=== PATIENT | female | born 1975 | race Caucasian/White ===

== ENCOUNTER 2020-12-27 08:35 | Emergency (ER) | payer MEDICARE, MEDICAID, SELFPAY ==
--- NOTE | ~2020-12-27 | XR_ITS ---
EXAMINATION: XR LUMBOSACRAL SPINE CLINICAL INFORMATION: Fall, pain COMPARISON: None TECHNIQUE: Three views of the lumbosacral spine. FINDINGS: Right upper quadrant cholecystectomy clips. 5 nonrib-bearing lumbar type vertebral bodies. Vertebral body heights are maintained. No compression fracture. Lower lumbar facet arthropathy particularly at L4-5 and L5-S1. There is degenerative disc disease with loss of disc height, endplate sclerosis and anterior as well as posterior osteophytosis at L5-S1. XR/XR lumbar spine 2-3V IMPRESSION: Lower lumbar degenerative changes. No acute osseous abnormality.
[2020-12-27 08:40] VITALS: BP 121/67; PULSE 78; RESP 16; TEMP 36.1; O2SAT 96; BMI 29.8
--- NOTE | 2020-12-27 09:10 | ED.FALL ---
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 No head injury or LOC. Not on anticoagulation. C/o low back pain. No neck pain, chest pain or abdominal pain. No headache. MD complaint: fall Related Data Previous Rx's Medication Instructions Recorded lidocaine [Lidoderm] 1 patch TOPICAL DAILY #15 ea 12/27/20 Allergies Allergy/AdvReac Type Severity Reaction Status Date / Time Iodinated Contrast Media Allergy Hypertensio Verified 12/27/20 08:45 [IV Contrast Dye] n seafood Allergy Palpitation Verified 12/27/20 08:45 s Review of Systems Review of Systems: Yes all other systems are reviewed and are negative Constitutional: Constitutional: Reports no additional constitutional complaints, Denies body ache(s), Denies chills, Denies fever(s), Denies headache(s) and Denies weakness Eyes: Eyes: Reports no additional eye complaints and Denies change in vision ENT: Reports system reviewed and no additional complaints, except as documented, Denies dizziness, Denies headache(s), Denies nasal congestion, Denies nasal discharge and Denies neck pain Cardiovascular: Cardiovascular: Reports no additional cardiovascular complaints, Denies chest pain, Denies leg edema and Denies dyspnea Respiratory: Respiratory: Reports no additional respiratory complaints, Denies cough and Denies dyspnea Gastrointestinal: Gastrointestinal: Reports no additional gastrointestinal complaints, Denies abdominal pain, Denies diarrhea, Denies nausea and Denies vomiting Genitourinary: Genitourinary: Reports no additional female genitourinary complaints and Denies urinary incontinence Musculoskeletal: Musculoskeletal: Reports no additional musculoskeletal complaints, Reports back pain, Denies arthralgias, Denies joint swelling, Denies neck pain, Denies numbness and Denies tingling Integumentary/Breasts: Skin/Breast: Reports system reviewed and no additional complaints, except as docu and Denies rash Neurologic: Reports system reviewed and no additional complaints, except as documented, Denies Abnormal speech present, Denies dizziness, Denies headache(s), Denies numbness, Denies tingling and Denies weakness PMFSH Past Medical History Attestation statement: The following information was validated with the patient. Source: old records reviewed and nursing notes reviewed Medical History (Updated 12/27/20 @ 09:55 by Leydi Merino NP) Asthma Herniated disc Hypoglycemia Mitral valve disease Tremor Social History Social History Advance Directives: No Advance Directives Information Provided: No Physical Exam Vital Signs: Vital Signs: Last Vital Signs Temp 97.0 F 12/27/20 08:40 Pulse 78 12/27/20 08:40 Resp 16 12/27/20 08:40 BP 121/67 12/27/20 08:40 Pulse Ox 96 12/27/20 08:40 Body Mass Index 29.8 Const: General: cooperative, healthy appearing, comfortable and no acute distress Orientation/consciousness: patient oriented x3 Limitations: no limitations HENMT: Head: Yes normal to inspection Ears: hearing grossly normal bilaterally General nose exam: Normal external nose present Face and sinus: Yes normal facial exam Mouth: Normal oral and palatal mucosa present Throat: Yes posterior oropharynx normal Eyes: General: appearance normal, both eyes and all related structures Pupils: Equal, round and reactive pupils present Neck: Neck: Yes normal visual inspection Chest: Chest palpation & inspection: normal inspection of the chest Resp: Effort & Inspection: normal respiratory effort Auscultation: clear to auscultation bilaterally Cardio: Rate: regular rate Rhythm: regular rhythm Peripheral pulses: Peripheral pulses 2+ throughout GI: Inspection: Yes normal to inspection Palpation (GI): Soft to palpation and nontender Auscultation: normal bowel sounds Back/Spine/Pelvis: Other: Ecchymosis over lumbar spine. No step-offs or deformities. There is midline tenderness Thoracic/Lumbar Spine: thoracic and lumbar spine normal to inspection Skin: General skin exam: no rashes or lesions noted Neuro: General: patient oriented x3, no focal motor deficits and normal sensation to monofilament Cranial nerves: Yes Equal, round and reactive pupils present Cognition (Neuro): normal cognition Speech: No Abnormal speech present Gait exam (Neuro): Normal gait present Motor exam (neuro): 5/5 motor strength present throughout Extrem: General: Yes normal to inspection Course Course Course Narrative: Low back pain status post slip and fall yesterday. On exam has some ecchymosis over the low spine tenderness. No step-offs or deformities. Will check imaging 0950-X-rays negative. Likely contusion. No neurological deficits or red flag symptoms. Reviewed worrisome signs and symptoms of when to return to the emergency department. Comfortable discharge home. MDM - Fall Medical Records Attestation: I reviewed the patient's medical records. Lab Data Attestation: I reviewed the patient's lab results. Imaging Data lumbar xra-y: Attestation: I personally reviewed and interpreted this imaging study as follows: Radiologist's impression: EXAMINATION: XR LUMBOSACRAL SPINE CLINICAL INFORMATION: Fall, pain COMPARISON: None TECHNIQUE: Three views of the lumbosacral spine. FINDINGS: Right upper quadrant cholecystectomy clips. 5 nonrib-bearing lumbar type vertebral bodies. Vertebral body heights are maintained. No compression fracture. Lower lumbar facet arthropathy particularly at L4-5 and L5-S1. There is degenerative disc disease with loss of disc height, endplate sclerosis and anterior as well as posterior osteophytosis at L5-S1. XR/XR lumbar spine 2-3V IMPRESSION: Lower lumbar degenerative changes. No acute osseous abnormality. Discharge Plan Discharge Clinical Impression: Contusion Patient Disposition: Home, Self-Care Instructions: Contusion in Adults (ED) Additional Instructions: Ice to the area Gentle stretching No heavy lifting or bending Continue the naproxen twice daily Follow-up with primary care doctor in 5-7 days Prescriptions: New lidocaine [Lidoderm] 5 % adhesive patch,medicated 1 patch topical DAILY Qty: 15 RF: 0 Referrals: Name,MD Mu [Primary Care Provider] - 2 days Interventions: ED Discharge Assessment Last Done: 12/27/20 10:10 Discharge Date/Time: 12/27/20 10:10 Print Language: Peruvian
== END 2020-12-27 10:10 | disposition home or self-care (01) ==
PROVIDERS: Emergency Provider Emergency Medicine; PCP Internal Medicine Geriatric Medicine
DX: S30.0XXA Contusion of lower back and pelvis, initial encounter (principal); M54.5 Low back pain; W00.0XXA Fall on same level due to ice and snow, initial encounter; Y93.29 Activity, other involving ice and snow; Y92.9 Unspecified place or not applicable; Y99.9 Unspecified external cause status; Z79.899 Other long term (current) drug therapy
CPT/HCPCS: 72100; 99283

== ENCOUNTER 2021-11-02 07:06 | Emergency (ER) | payer MEDICARE, MEDICAID, SELFPAY ==
--- NOTE | ~2021-11-02 | XR_ITS ---
EXAMINATION: XR CHEST CLINICAL INFORMATION: Shortness of breath with cough. Covid positive. COMPARISON: None TECHNIQUE: AP portable view of the chest was obtained. FINDINGS: No significant abnormality is noted involving the heart, lungs, mediastinum, bony thorax or soft tissues. XR/XR chest 1V IMPRESSION: No acute parenchymal disease.
[2021-11-02 07:38] VITALS: BP 112/68; PULSE 90; RESP 18; TEMP 37.1; O2SAT 96
[2021-11-02 08:14] LABS: COVID-19 Test Positive (Negative)
[2021-11-02 08:28] VITALS: BP 99/68; PULSE 74; RESP 16; TEMP 36.9; O2SAT 96; BMI 25.4
--- NOTE | 2021-11-02 08:33 | ED.URI ---
HPI - URI/Sore Throat General Chief Complaint: Upper Respiratory Symptoms Stated Complaint: SOB/Sore throat Time Seen by Provider: 11/02/21 07:12 Source: patient and machinist apprentice Mode of arrival: ambulatory Limitations: language barrier History of Present Illness HPI Narrative: 46-year-old female with a history of asthma here with reports of shortness of breath body aches for 3 days, with cough and wheezing despite using her albuterol inhaler. Patient denies any fevers, chills, abdominal pain, vomiting, diarrhea, chest pain. Patient received Moderna vaccine x2. Related Data Previous Rx's Medication Instructions Recorded lidocaine 5 % topical patch 1 patch TOPICAL DAILY #15 ea 12/27/20 (Lidoderm) benzonatate 200 mg capsule 200 mg PO TID PRN #15 cap 11/02/21 prednisone 20 mg tablet 40 mg PO DAILY #10 tab 11/02/21 Allergies Allergy/AdvReac Type Severity Reaction Status Date / Time Iodinated Contrast Media Allergy Hypertensio Verified 12/27/20 08:45 [IV Contrast Dye] n seafood Allergy Palpitation Verified 12/27/20 08:45 s Review of Systems Review of Systems: Yes all other systems are reviewed and are negative Constitutional: Constitutional: Reports no additional constitutional complaints, Reports body ache(s), Denies chills, Denies fever(s), Denies headache(s) and Denies weakness Eyes: Eyes: Reports no additional eye complaints and Denies change in vision ENT: Reports system reviewed and no additional complaints, except as documented, Denies dizziness, Denies headache(s), Denies nasal congestion, Denies nasal discharge and Denies neck pain Cardiovascular: Cardiovascular: Reports no additional cardiovascular complaints, Denies chest pain, Denies leg edema and Reports dyspnea Respiratory: Respiratory: Reports no additional respiratory complaints, Reports cough, Reports dyspnea and Reports wheezing Gastrointestinal: Gastrointestinal: Reports no additional gastrointestinal complaints, Denies abdominal pain, Denies diarrhea, Denies nausea and Denies vomiting Genitourinary: Genitourinary: Reports no additional female genitourinary complaints and Denies urinary incontinence Musculoskeletal: Musculoskeletal: Reports no additional musculoskeletal complaints, Denies back pain, Denies arthralgias, Denies joint swelling, Denies neck pain, Denies numbness and Denies tingling Integumentary/Breasts: Skin/Breast: Reports system reviewed and no additional complaints, except as docu and Denies rash Neurologic: Reports system reviewed and no additional complaints, except as documented, Denies Abnormal speech present, Denies dizziness, Denies headache(s), Denies numbness, Denies tingling and Denies weakness Allergic/Immunologic: Allergic/Immunologic: Reports wheezing [facility] Past Medical History Attestation statement: The following information was validated with the patient. Source: old records reviewed and nursing notes reviewed Medical History Asthma Herniated disc Hypoglycemia Mitral valve disease Tremor Social History Social History Advance Directives: No Advance Directives Information Provided: Yes Physical Exam Vital Signs: Vital Signs: Last Vital Signs Temp 98.5 F 11/02/21 08:28 Pulse 74 11/02/21 08:28 Resp 16 11/02/21 08:28 BP 99/68 11/02/21 08:28 Pulse Ox 96 11/02/21 08:28 BMI result Body Mass Index 25.4 Const: General: cooperative, healthy appearing, comfortable and no acute distress Orientation/consciousness: patient oriented x3 Limitations: no limitations HENMT: Head: Yes normal to inspection Ears: hearing grossly normal bilaterally and TM's normal bilaterally General nose exam: Normal external nose present Face and sinus: Yes normal facial exam Mouth: Normal oral and palatal mucosa present Throat: Yes posterior oropharynx normal, Yes tonsils normal and Yes uvula midline Eyes: General: appearance normal, both eyes and all related structures Pupils: Equal, round and reactive pupils present Neck: Neck: Yes normal visual inspection, Yes full ROM, Yes no lymphadenopathy and Yes no meningeal signs Chest: Chest palpation & inspection: normal inspection of the chest Resp: Effort & Inspection: normal respiratory effort Auscultation: clear to auscultation bilaterally Cardio: Rate: regular rate Rhythm: regular rhythm Peripheral pulses: Peripheral pulses 2+ throughout GI: Inspection: Yes normal to inspection Palpation (GI): Soft to palpation and nontender Auscultation: normal bowel sounds Back/Spine/Pelvis: Thoracic/Lumbar Spine: thoracic and lumbar spine normal to inspection Skin: General skin exam: no rashes or lesions noted Neuro: General: patient oriented x3, no meningeal signs, no focal motor deficits and normal sensation to monofilament Cranial nerves: Yes Equal, round and reactive pupils present Cognition (Neuro): normal cognition Speech: No Abnormal speech present Gait exam (Neuro): Normal gait present Motor exam (neuro): 5/5 motor strength present throughout Extrem: General: Yes normal to inspection, Yes no pedal edema and Yes no calf tenderness Course Course Course Narrative: 46-year-old female with a history of asthma here with 3 days of cough, wheezing, shortness of breath and body aches. Patient received COVID vaccine x2, she has not received a booster. On arrival the patient appears well. She has mild expiratory wheezing. Vitals are stable. No tachypnea or hypoxia. COVID screen is positive. Will check chest x-ray 914-chest x-ray shows no acute finding. Due to wheezing will prescribe course of prednisone. Patient was given referral sheet for monoclonal antibodies and this was emailed to the [facility]. We discussed this with the machinist apprentice. Reviewed worrisome signs and symptoms and when to return to the emergency department. Comfortable with discharge home. MDM - URI/Sore Throat Medical Records Attestation: I reviewed the patient's medical records. Lab Data Attestation: I reviewed the patient's lab results. Labs: Lab Results 11/02/21 Range/Units 07:53 COVID-19 (BEL) Positive A (Negative) COVID-19 Clin Com See Note Imaging Data Chest x-ray: Attestation: I personally reviewed and interpreted this imaging study as follows: Radiologist's impression: EXAMINATION: XR CHEST CLINICAL INFORMATION: Shortness of breath with cough. Covid positive. COMPARISON: None TECHNIQUE: AP portable view of the chest was obtained. FINDINGS: No significant abnormality is noted involving the heart, lungs, mediastinum, bony thorax or soft tissues. XR/XR chest 1V IMPRESSION: No acute parenchymal disease. ? Discharge Plan Discharge Clinical Impression: COVID-19 Patient Disposition: Home, Self-Care Instructions: COVID-19 (Coronavirus Disease 2019) (ED) Additional Instructions: Quarantine for 10 days from onset of symptoms Increase fluids, rest Alternate Motrin and Tylenol for pain or fever Continue your albuterol Return to the emergency department for worsening shortness of breath or chest pain See referral sheet for monoclonal antibodies Prescriptions: New prednisone 20 mg tablet 40 mg PO DAILY Qty: 10 RF: 0 benzonatate 200 mg capsule 200 mg PO TID PRN (Reason: cough) Qty: 15 RF: 0 No Action lidocaine [Lidoderm] 5 % adhesive patch,medicated 1 patch topical DAILY Qty: 15 RF: 0 Referrals: Sharonda Newton MD [Primary Care Provider] - 2 days Interventions: ED Discharge Assessment Last Done: 11/02/21 09:27 Discharge Date/Time: 11/02/21 09:29 Print Language: Kyrgyz
== END 2021-11-02 09:29 | disposition home or self-care (01) ==
PROVIDERS: Emergency Provider Emergency Medicine; PCP Internal Medicine
DX: U07.1 COVID-19 (principal); R06.02 Shortness of breath
CPT/HCPCS: 36415; 71045; 87635; 99282; 99283

== ENCOUNTER 2022-07-01 13:05 | Outpatient (REF) | payer MEDICARE, MEDICAID, SELFPAY ==
--- NOTE | ~2022-07-01 | MM_ITS ---
EXAMINATION: MM SCREENING DIGITAL BREAST TOMOSYNTHESIS, BILATERAL CLINICAL INFORMATION: Screening. Asymptomatic. The lifetime risk of breast cancer based on the Tyrer-Cuzick Model is 11%. COMPARISON: Mammography: None. TECHNIQUE: Digital breast tomosynthesis is performed in both the craniocaudal and mediolateral oblique views along with computer-aided detection (CAD). Synthesized 2D images are generated from the tomosynthesis. FINDINGS: There are scattered areas of fibroglandular density (ACR BI-RADS breast composition Category b). There are a few intramammary lymph nodes seen about the right breast. Within the medial aspect of the left breast, approximately 4 cm from the nipple, there is a well-circumscribed 5 mm density for which ultrasound evaluation is recommended. MM/MM tomosynthesis screening BI IMPRESSION: Left breast density for further evaluation with ultrasound. ASSESSMENT: BI-RADS 0: Incomplete - Need Additional Imaging Evaluation. RECOMMENDATION: Recall for left breast ultrasound.
== END 2022-07-01 13:06 | disposition home or self-care (01) ==
LOC: HO.MAMMO 13:05
PROVIDERS: PCP Internal Medicine Geriatric Medicine; Visit Provider Internal Medicine Geriatric Medicine
DX: Z12.31 Encounter for screening mammogram for malignant neoplasm of breast (principal)
CPT/HCPCS: 77063; 77067

== ENCOUNTER 2022-07-06 12:37 | Outpatient (REF) | payer MEDICARE, MEDICAID, SELFPAY ==
--- NOTE | ~2022-07-06 | US_ITS ---
EXAMINATION: US DIAGNOSTIC ULTRASOUND BREAST, LEFT CLINICAL INFORMATION: Recall from new baseline screening for circumscribed nodule under 1 cm mid medial left breast. Prior outside mammography from [place] unavailable and unable to be retrieved. TC score 11%. COMPARISON: New baseline mammography 07/01/2022. TECHNIQUE: Ultrasound left breast is targeted to the medial breast. Grayscale imaging and color Doppler are performed without and with harmonics. FINDINGS: Ultrasound demonstrates a circumscribed smooth nodule under 1 cm 10:00 position 5 cm from nipple with central cystic component and peripheral isoechoic component. There is no associated peripheral or internal color flow. No increased or definite decreased through transmission of sound. The finding corresponds to the nodule on mammography. Mammographic appearance is slightly lower attenuation than fibroglandular tissue, suggesting possible oil cyst/fat necrosis. Patient does not recall prior history of left breast trauma. Results are discussed with the patient at time of visit using an data entry machine operator. Patient favors ultrasound-guided tissue sampling. Results and recommendation called to medical orderly (Rose) for Dr. Salazar on 07/06/2022. US/US breast LT limited IMPRESSION: Indeterminate smooth nodule with mixed echogenicity anterior 9:30-10:00 position, proximally 0.6 cm. ASSESSMENT: BI-RADS 4: Suspicious (subcategory 4A: Low suspicion for malignancy) RECOMMENDATION: Ultrasound-guided core biopsy left breast nodule. This patient's information was entered into a reminder system with a target due date for their next mammogram.
== END 2022-07-06 12:38 | disposition home or self-care (01) ==
LOC: HO.MAMMO 12:37
PROVIDERS: PCP Internal Medicine Geriatric Medicine; Visit Provider Internal Medicine Geriatric Medicine
DX: R92.2 Inconclusive mammogram (principal)
CPT/HCPCS: 76642

== ENCOUNTER → 2022-07-07 08:11 | Outpatient (BNVA) | payer MEDICARE, MEDICAID, SELFPAY | PROVIDERS: PCP Internal Medicine Geriatric Medicine; Visit Provider Surgery | DX: R92.8 Other abnormal and inconclusive findings on diagnostic imaging of breast (principal) | CPT/HCPCS: 99202 ==

== ENCOUNTER 2022-07-08 07:33 | Outpatient (REF) | payer MEDICARE, MEDICAID, SELFPAY ==
--- NOTE | ~2022-07-08 | MM_ITS ---
PROCEDURE: US GUIDED BREAST BIOPSY, LEFT CLINICAL INFORMATION: Hypoechoic lesion 10:00 position 5 cm from the nipple for biopsy COMPARISON: July 06, 2022 and mammography of July 01, 2022 PROCEDURAL DETAILS: The details of the procedure, as well as the risks, benefits, and alternatives to the procedure were explained to the patient in detail and all of her questions were answered, after which written informed consent was obtained. Site and side were confirmed. Prior to the procedure, sonography revealed a circumscribed hypoechoic lesion. A time-out was performed, the lesion intended for biopsy was targeted, and the skin of the left breast was then prepped and draped in the usual sterile fashion. Using sonographic guidance, sterile technique, and 1% lidocaine without epinephrine for local anesthesia, multiple automated core biopsies were obtained through the targeted area with a 14G spring loaded Achieve core biopsy device. There was real-time confirmation of appropriate needle passage. Sampling was documented. At the completion of tissue sampling, a single open coil-shaped metallic clip was deposited at the biopsy site. There was no evidence of immediate complication. SPECIMEN: An appropriate sample was obtained. DIGITAL POST-PROCEDURE MAMMOGRAPHY: Breast density: The tissue contains scattered areas of fibroglandular density. BI-RADS version 5, category B. There are no new mammographic findings demonstrated. The postprocedure 2-view direct digital mammogram reveals satisfactory positioning of the biopsy clip. The clip lies adjacent to an approximately 2 mm from the circumscribed density. The patient tolerated the procedure well and, after assuring adequate hemostasis, was discharged in good condition after reviewing postbiopsy breast care instructions. Final pathology results are pending. MM/MM diagnostic mammo unilat LT IMPRESSION: 1. No immediate complication from ultrasound-guided percutaneous biopsy left breast. 2. Ultrasound was used to localize and guide marker clip placement. 3. The 2-view direct digital postprocedure mammogram reveals satisfactory positioning of the biopsy clip. 4. Final pathology results are pending. A separate report with final recommendations will be issued once these results are made available.
== END 2022-07-08 07:34 | disposition home or self-care (01) ==
LOC: HO.MAMMO 07:33
PROVIDERS: PCP Internal Medicine Geriatric Medicine; Visit Provider Surgery
DX: R92.8 Other abnormal and inconclusive findings on diagnostic imaging of breast (principal)
CPT/HCPCS: 19083; 77062; 77065; 88305; A4648

== ENCOUNTER → 2022-07-14 09:04 | Outpatient (BNVA) | payer MEDICARE, MEDICAID, SELFPAY | PROVIDERS: PCP Internal Medicine Geriatric Medicine; Visit Provider Surgery | DX: R92.8 Other abnormal and inconclusive findings on diagnostic imaging of breast (principal) | CPT/HCPCS: 99212 ==

== ENCOUNTER 2022-08-06 08:15 | Emergency (ER) | payer MEDICARE, MEDICAID, SELFPAY ==
[2022-08-06 09:16] VITALS: BP 114/78; PULSE 80; RESP 16; TEMP 36.1; O2SAT 100; BMI 29.8
--- NOTE | 2022-08-06 11:07 | ED.GENADULT ---
HPI - General Adult General Chief complaint: General Medical Stated complaint: Chest pain on r side Time Seen by Provider: 08/06/22 11:07 Source: patient Mode of arrival: ambulatory History of Present Illness HPI narrative: 47-year-old female with a past medical history of asthma, herniated disc, hypoglycemia, mitral valve disease, tremor, presenting to the ED complaining of flashing right breast pain x3 weeks. Reports symptoms began after recent mammogram and ultrasound. States had to mammograms and ultrasound with biopsy to left breast about 2 weeks ago. Reports continued right breast sensitivity and discomfort. Denies skin changes, redness, palpable mass, nipple discharge, fever Onset (ago): week(s) Related Data Home Medications Medication Instructions Recorded Confirmed baclofen 10 mg tablet 10 mg PO DAILY 07/07/22 07/14/22 bupropion HCl 150 mg 24 hr tablet, 150 mg PO QAM 07/07/22 07/14/22 extended release clonazepam 1 mg tablet 1 mg PO BID 07/07/22 07/14/22 loratadine 10 mg tablet 10 mg PO DAILY 07/07/22 07/14/22 montelukast 10 mg tablet 10 mg PO QPM 07/07/22 07/14/22 ramelteon 8 mg tablet 8 mg PO BEDTIME 07/07/22 07/14/22 Allergies Allergy/AdvReac Type Severity Reaction Status Date / Time Iodinated Contrast Media Allergy Hypertensio Verified 07/14/22 09:09 [IV Contrast Dye] n seafood Allergy Palpitation Verified 07/14/22 09:09 s Review of Systems Review of Systems: Constitutional: No Fever, No Chills, No Night Sweats, No Fatigue, No Malaise ENT/Mouth: No Hearing loss, No Ear Pain, No Nasal Congestion, No sore throat, No Rhinorrhea, No Swallowing Difficulty Eyes: No Eye Pain, No Swelling, No Redness, No Vision Changes Cardiovascular: No Chest Pain, No SOB, No Palpitations, +Right breast pain Respiratory: No Cough, No Sputum, No Dyspnea Gastrointestinal: No Nausea, No Vomiting, No Diarrhea, No Constipation, No Abdominal pain Genitourinary: No Dysuria, No Urinary Frequency, No Hematuria, No Hesitancy Musculoskeletal: No joint pain, No Myalgias, No Joint Swelling Skin: No Skin Lesions, No rash, No skin changes, No discharge Yes all other systems are reviewed and are negative Constitutional: Constitutional: Reports as per [facility] Past Medical History Attestation statement: The following information was validated with the patient. Medical History Asthma Herniated disc Hypoglycemia Mitral valve disease Tremor Family History Family History Mother Diabetes Arthritis Hypertension Sister Hypertension Breast cancer Sister Asthma GI problem Endometrial ca Social History Social History Advance Directives: No Physical Exam ED Vital Signs: Vital Signs - 24 hr 08/06/22 09:16 Temperature 97 F Pulse Rate 80 Respiratory Rate 16 Blood Pressure 114/78 Pulse Oximetry 100 Oxygen Delivery Method Room Air BMI result Body Mass Index 29.8 Const General: cooperative, healthy appearing and no acute distress Orientation/consciousness: patient oriented x3 Limitations: no limitations HENMT Head: Yes normal to inspection and Yes atraumatic Ears: hearing grossly normal bilaterally General nose exam: Normal external nose present Face and sinus: Yes normal facial exam Eyes General: appearance normal, both eyes and all related structures EOM: EOMs intact bilaterally Neck Neck: Yes normal visual inspection and Yes no meningeal signs Chest Other: + tenderness to palpation to right breast at 01:00 o'clock region. No appreciable mass, no erythema/fluctuance or induration. No warmth/cellulitis Breast/axilla inspection: normal inspection of the breasts Breast/axilla palpation: normal palpation of the breasts and normal palpation of the axillae Resp Effort & Inspection: normal respiratory effort and no respiratory distress Auscultation: clear to auscultation bilaterally, no crackles, no rales and no rhonchi Cardio Rate: regular rate Heart sounds: S1 normal heart sound present and S2 normal heart sound present GI Inspection: Yes normal to inspection Palpation (GI): Soft to palpation, nontender, no guarding and not rigid Skin Rashes: no rashes Wounds: no wounds Neuro General: patient oriented x3, tone normal and no meningeal signs Gait exam (Neuro): Normal gait present Extrem General: Yes normal to inspection Medical Decision Making MDM Narrative Medical decision making narrative: 47-year-old female with a past medical history of asthma, herniated disc, hypoglycemia, mitral valve disease, tremor, presenting to the ED complaining of flashing right breast pain x3 weeks. On exam vital signs stable, NAD, nontoxic appearing, physical exam as above. Right breast tenderness noted at 01:00 o'clock region without appreciable deformity/mass, skin changes or nipple discharge. Per chart review biopsy from left breast showed no atypia or malignancy Discussed with patient and family at bedside recommend repeat ultrasound/mammogram for right breast discomfort. Results discussed with patient including worrisome signs and symptoms and strict return precautions, and when to return to the emergency department. They verbalized understanding and feel safe for discharge at this time. Medical Records Medical records reviewed: Yes I reviewed the patient's medical records. Lab Data Lab results reviewed: Yes I reviewed the patient's lab results. Discharge Plan Discharge Clinical Impression: Breast pain, right Patient Disposition: Home, Self-Care Additional Instructions: We recommend you have a repeat ultrasound/mammogram I have your right breast due to continued pain If area begins look infected, is red, there is skin changes, nipple discharge, growing mass or persistent pain please return to the emergency department Take Tylenol and Motrin. Apply warm compresses or cool compresses whichever feels better Le recomendamos que se repita la ecograf?a/mamograf?a. Tengo el seno derecho debido al dolor dano. Si el ?gloria comienza a verse infectada, est? dona, hay cambios en la piel, secreci?n del pez?n, masa en crecimiento o dolor persistente, regrese al departamento de emergencias.Alize Tylenol y Motrin. Aplique compresas tibias o compresas fr?as, lo que se sienta mejor Prescriptions: No Action ramelteon 8 mg tablet 8 mg PO BEDTIME clonazepam 1 mg tablet 1 mg PO BID bupropion HCl 150 mg tablet extended release 24 hr 150 mg PO QAM loratadine 10 mg tablet 10 mg PO DAILY montelukast 10 mg tablet 10 mg PO QPM baclofen 10 mg tablet 10 mg PO DAILY Referrals: Name,MD Mu [Primary Care Provider] - Print Language: Persian
--- OUTSIDE RECORDS SUMMARY | 2022-08-06 11:26 | XMS_ITS | Continuity of Care Document ---
:1975 Author Organization [facility] Address [address] [facility], 3rd Floor, [address] [place] [id number]- Care Team Providers Name Role Phone Name Mu MALAGON Primary Care Physician [place] [facility] [place] 04/[place] - 05/22/21 [facility] [address] [facility], [address], [address] [place] [id number] Attending Physician: Albert Conner Admitting Physician: Albert Conner Referring Physician: Albert Conner
--- OUTSIDE RECORDS SUMMARY | 2022-08-06 11:26 | XMS_ITS | Continuity of Care Document ---
:1975 Author Organization [facility] Address [address] [facility], [address]rd Floor, [address] [place] [id number]- Care Team Providers Name Role Phone Name Mu MALAGON Primary Care Physician Encounter [facility] [place] Date(s): 02/04/21 - 05/22/21 [facility] [address] [facility], [address], [address] [place] [id number] Attending Physician: Roxy Avendaño MD Admitting Physician: Roxy Avendaño MD Referring Physician: Mu Salazar MD
== END 2022-08-06 11:52 | disposition home or self-care (01) ==
PROVIDERS: Emergency Provider Emergency Medicine; PCP Internal Medicine Geriatric Medicine
DX: N64.4 Mastodynia (principal)
CPT/HCPCS: 99283

== ENCOUNTER 2022-08-24 13:17 | Emergency (ER) | payer MEDICARE, MEDICAID, SELFPAY ==
[2022-08-24 14:38] VITALS: BP 116/65; PULSE 69; RESP 16; TEMP 36.3; O2SAT 98; BMI 29.0
--- NOTE | 2022-08-24 16:05 | ED.GENADULT ---
HPI - General Adult General Chief complaint: General Medical Stated complaint: pain in vagina Time Seen by Provider: 08/24/22 16:02 Source: patient Mode of arrival: ambulatory Limitations: no limitations History of Present Illness HPI narrative: 47 yold female presents to the ED for hot sensation on labias and one episode of pink discharge maybe blood in uA. Patient has a burning and vaginal labia for couple of days. She states her primary care provider assume it was fungus without doing pelvic exam and given 1 dose of Diflucan. Patient denies any abdominal pain, nausea, vomiting, fever, chills, flank pain, vaginal lesions, vaginal trauma, for history of STD. Patient is still sexually active with her . Related Data Home Medications Medication Instructions Recorded Confirmed baclofen 10 mg tablet 10 mg PO DAILY 07/07/22 07/14/22 bupropion HCl 150 mg 24 hr tablet, 150 mg PO QAM 07/07/22 07/14/22 extended release clonazepam 1 mg tablet 1 mg PO BID 07/07/22 07/14/22 loratadine 10 mg tablet 10 mg PO DAILY 07/07/22 07/14/22 montelukast 10 mg tablet 10 mg PO QPM 07/07/22 07/14/22 ramelteon 8 mg tablet 8 mg PO BEDTIME 07/07/22 07/14/22 Previous Rx's Medication Instructions Recorded doxycycline hyclate 100 mg capsule 100 mg PO BID 7 days #14 caps 08/24/22 fluconazole 150 mg tablet 150 mg PO ONCE 1 day #1 tab 08/24/22 (Diflucan) metronidazole 500 mg tablet 500 mg PO Q12H 7 days #14 tabs 08/24/22 Allergies Allergy/AdvReac Type Severity Reaction Status Date / Time Iodinated Contrast Media Allergy Hypertensio Verified 07/14/22 09:09 [IV Contrast Dye] n seafood Allergy Palpitation Verified 07/14/22 09:09 s Review of Systems Review of Systems: burning vaginal lesions Yes all other systems are reviewed and are negative PMF Past Medical History Medical History Asthma Herniated disc Hypoglycemia Mitral valve disease Tremor Family History Family History Mother Diabetes Arthritis Hypertension Sister Hypertension Breast cancer Sister Asthma GI problem Endometrial ca Social History Social History Advance Directives: No Advance Directives Information Provided: No Physical Exam ED Vital Signs: Vital Signs - 24 hr 08/24/22 14:38 Temperature 97.4 F Pulse Rate 69 Respiratory Rate 16 Blood Pressure 116/65 Pulse Oximetry 98 Oxygen Delivery Method Room Air BMI result Body Mass Index 29.0 Const General: cooperative, healthy appearing, comfortable, no acute distress, well developed, alert, awake and Physically active Orientation/consciousness: oriented to time and patient oriented x3 HENMT Head: Yes normal to inspection, Yes No palpable skull fracture present, Yes normocephalic, Yes atraumatic and No abrasion Eyes General: appearance normal, both eyes and all related structures Neck Neck: Yes normal visual inspection, Yes full ROM, Yes no lymphadenopathy, Yes no meningeal signs, Yes trachea midline, Yes supple, No anterior neck swelling and No tender Chest Chest palpation & inspection: normal inspection of the chest and normal palpation of entire chest wall Resp Effort & Inspection: normal respiratory effort and able to speak in complete sentences Auscultation: clear to auscultation bilaterally Cardio Jugular venous distension: no JVD Heart sounds: S1 normal heart sound present and S2 normal heart sound present GI Inspection: Yes normal to inspection and No abdominal wall ecchymosis Palpation (GI): Soft to palpation, not firm, nontender, no guarding and not rigid Other: negative for any vaginal abscess or bartholin cysts. General: No CVA tenderness and Yes no CVA tenderness External Female Exam: normal external appearance Speculum Exam - Vagina: abnormal vaginal discharge frothy (brown) Speculum Exam - Cervix: Abnormal cervical discharge present other (brown) Bimanual exam- vagina & uterus: normal bimanual exam Bimanual Exam- Adnexa, other: normal adnexae Back/Spine/Pelvis Back: no CVA tenderness, No CVA tenderness and No back tenderness Skin General skin exam: no rashes or lesions noted and elasticity normal Neuro General: oriented to time, patient oriented x3, gait normal, tone normal, no meningeal signs and CN's II-XI intact bilaterally Cranial nerves: Yes CN's II-XII intact bilaterally Extrem General: Yes normal to inspection and Yes full ROM Psych Appearance: grossly normal, well kempt and not disheveled Course Course Course Narrative: Patient well-appearing. Will order UA, UC G, do pelvic exam and order swabs Reevaluation(s) Reevaluation #1: UA came back negative for or infection. To brownish green discharge patient educated on empiric treatment for STI and vaginitis. Patient agreeable with plan Time: 17:17 Medical Decision Making MDM Narrative Medical decision making narrative: VAginitis Lab Data Labs: Lab Results 08/24/22 08/24/22 Range/Units 16:19 16:19 Urine Color Yellow Urine Appearance Clear Urine pH 5.5 (5.0-9.0) Ur Specific [place] <= 1.005 (1.005-1.025) Urine Protein Negative (Neg-Trace) mg/dL Urine Glucose (UA) Negative (Negative) mg/dL Urine Ketones Negative (Negative) mg/dL Urine Blood Negative (Negative) Urine Nitrite Negative (Negative) Ur Leukocyte Esterase Negative (Negative) Urine Test NEGATIVE (NEGATIVE) Discharge Plan Discharge Clinical Impression: Vaginitis Patient Disposition: Home, Self-Care Instructions: Bacterial Vaginosis (ED), Vaginal Discharge (ED) Additional Instructions: Seay orina result? negativa para el embarazo por infecci?n. Se le tratar? chris vaginitis. Ser? dado de carey con metronidazol, doxiciclina y 1 dosis de Diflucan. Regrese al servicio de urgencias de inmediato por cualquier dolor abdominal, n?useas, v?mitos, fiebre, escalofr?os, lesiones vaginales, flujo vaginal, sangrado vaginal, dolor en el costado, debilidad, mareos, fiebre, escalofr?os o cualquier otro s?ntoma preocupante. Por favor, miguel a un seguimiento con el PCP. Prescriptions: New doxycycline hyclate 100 mg capsule 100 mg PO BID 7 Days Qty: 14 0RF metronidazole 500 mg tablet 500 mg PO Q12H 7 Days Qty: 14 0RF fluconazole [Diflucan] 150 mg tablet 150 mg PO ONCE 1 Days Qty: 1 0RF Rx Instructions: Take this dose 72 hours from the dose you were given in the ED on 08/24/2022. No Action ramelteon 8 mg tablet 8 mg PO BEDTIME clonazepam 1 mg tablet 1 mg PO BID bupropion HCl 150 mg tablet extended release 24 hr 150 mg PO QAM loratadine 10 mg tablet 10 mg PO DAILY montelukast 10 mg tablet 10 mg PO QPM baclofen 10 mg tablet 10 mg PO DAILY Referrals: Marie,MD Mu [Primary Care Provider] - (Vaginitis) Interventions: ED Discharge Assessment Last Done: 08/24/22 17:52 Discharge Date/Time: 08/24/22 17:53 Print Language: [place]
[2022-08-24 16:33] LABS: Appearance Urine Clear; Color Urine Yellow; Glucose Urine UA Negative (Negative); Leukocyte Esterase Urine Negative (Negative); Nitrite Urine Negative (Negative); PH 5.5 (5.0-9.0); Specific Gravity - Urine <= 1.005 (1.005-1.025); Urine Blood Negative (Negative); Urine Ketones Negative (Negative); Urine Protein Negative (Neg-Trace)
[2022-08-24 16:34] LABS: UPreg QC Valid YES; Urine Pregnancy NEGATIVE (NEGATIVE)
[2022-08-24] MEDS: Lidocaine HCl 1 % MPF 2 ML VIAL INFILTRATI (17:43)
[2022-08-24] MEDS: cefTRIAXone sodium 500 MG, Lidocaine HCl 1 % MPF 1 ML IM (17:43)
[2022-08-24] MEDS: Fluconazole 150 MG TABLET PO (17:44)
--- NOTE | 2022-08-24 17:51 | PC.NURSE ---
Pt medicated as ordered prior to discharge. Pt aox4. No apparent distress noted. Discharge instructions reviewed with pt. Pt verbalizes understanding.
[2022-08-25 02:24] LABS: CT PCR NOT DETECTED (Not Detect.); NG PCR NOT DETECTED (Not Detect.)
[2022-08-25 12:16] LABS: BV Int Neg Control Negative (Negative); BV Int Pos Control Positive (Positive)
== END 2022-08-24 17:53 | disposition home or self-care (01) ==
PROVIDERS: Physician Assistant; Emergency Provider Emergency Medicine; PCP Internal Medicine Geriatric Medicine
DX: N76.0 Acute vaginitis (principal); R10.2 Pelvic and perineal pain
CPT/HCPCS: 81003; 81025; 87480; 87491; 87510; 87591; 87660; 96372; 99283; 99284; J0696

== ENCOUNTER 2022-08-26 10:36 | Outpatient (REF) | payer MEDICARE, MEDICAID, SELFPAY ==
--- NOTE | ~2022-08-26 | US_ITS ---
EXAMINATION: US DIAGNOSTIC ULTRASOUND BREAST, RIGHT CLINICAL INFORMATION: Recent right breast tenderness. No discharge or erythema. COMPARISON: Mammography 07/01/2022. TECHNIQUE: Ultrasound right breast is targeted to the areas of clinical concern. Patient is able to point to the areas at time of imaging. Grayscale imaging and color Doppler are performed without and with harmonics. FINDINGS: There is no focal suspicious finding. There is no cystic or solid mass, architectural abnormality, duct ectasia, or edema in the soft tissue planes. Results are discussed with the patient at time of visit, using an sorority supervisor. US/US breast RT limited IMPRESSION: Normal study. ASSESSMENT: BI-RADS 1: Negative RECOMMENDATION: 1. Patient's right breast pain should be managed based on the clinical impression. 2. Otherwise, routine annual screening mammography. This patient's information was entered into a reminder system with a target due date for their next mammogram.
== END 2022-08-26 10:37 | disposition home or self-care (01) ==
LOC: HO.MAMMO 10:36
PROVIDERS: PCP Internal Medicine Geriatric Medicine; Visit Provider Internal Medicine Geriatric Medicine
DX: N64.4 Mastodynia (principal)
CPT/HCPCS: 76642